=== PATIENT | female | born 1990 | race Caucasian/White ===

== ENCOUNTER 2016-12-04 23:32 | Emergency (ER) | payer OTHER ==
[~2016-12-04] VITALS: Ht 162.6 cm; Wt 93.6 kg
[~2016-12-04 23:32] MED LIST: DOXY100T20 PO
[2016-12-04 23:34] VITALS: Ht 162.6 cm; Wt 93.6 kg
--- NOTE | 2016-12-05 02:34 | ERD ---
ER Documentation Chief Complaint Date/Time DATE: 12/05/16 TIME: 02:33 Chief Complaint SOB COUGH OFF AND ON FOR 2 MO. WORSE TONIGHT HPI 26-year-old female presents here in emergency department for complaints of cough , runny nose nasal congestion sore throat on and off shortness of breath and wheezing for 2 months now. Patient smokes regularly, smokes marijuana, takes cocaine. Patient does not take any medications SYMPTOMS. Patient was told before to have bronchitis. Patient does not have any fever or chills. Patient does not have any chest or palpitations. Patient denies any dizziness. She denies any sick contacts. ROS All systems reviewed and are negative except as per history of present illness. Medications Home Meds Active Scripts Doxycycline Hyclate* (Doxycycline Hyclate*) 100 Mg Tablet.dr, 100 MG PO BID for 10 Days, TAB Prov:MATEUSZ BYRD PA-C 07/30/16 Allergies Allergies: Coded Allergies: No Known Allergy (Unverified , 12/04/16) PMhx/Soc Hx Miscellaneous Medical Probl: Yes (alcoholic since 2006) Hx Alcohol Use: Yes (a handle of vodka daily) Hx Substance Use: Yes (marijuana) Hx Tobacco Use: Yes Smoking Status: Current every day smoker FmHx Family History: No coronary disease, No diabetes, No other Physical Exam Vitals Vital Signs Date Time Temp Pulse Resp B/P Pulse Ox O2 Delivery O2 Flow Rate FiO2 12/04/16 23:34 97.9 106 26 142/101 100 Physical Exam GENERAL: The patient is well developed and appropriate for usual state of health, in no apparent distress. CHEST: Clear to auscultation bilaterally. There are no rales, wheezes or rhonchi. HEART: Regular rate and rhythm. No murmurs, clicks, rubs or gallops. No S3 or S4. ABDOMEN: Soft, nontender and nondistended. Good bowel sounds. No rebound or guarding. No gross peritonitis. No gross organomegaly or masses. No Jimenes sign or McBurney point tenderness. BACK: No midline or flank tenderness. EXTREMITIES: Equal pulses bilaterally. There is no peripheral clubbing, cyanosis or edema. No focal swelling or erythema. Full range of motion. Grossly neurovascularly intact. NEURO: Alert and oriented. Cranial nerves 2-12 intact. Motor strength in all 4 extremities with 5/5 strength. Sensation grossly intact. Normal speech and gait. SKIN: There is no apparent rash or petechia. The skin is warm and dry. HEMATOLOGIC AND LYMPHATIC: There is no evidence of excessive bruising or lymphedema. No gross cervical, axillary, or inguinal lymphadenopathy. Results 24 hrs PROCEDURE: CHEST - 1 VIEW CLINICAL INDICATION: 26-year-old female with cough for 1 month. TECHNIQUE: A single frontal PA view of the chest was performed. The images were reviewed on a PACS workstation. COMPARISON: None. FINDINGS: The cardiomediastinal silhouette has a normal appearance. There is no evidence for an infiltrate. The pulmonary vascularity is within normal limits. There is no evidence for pneumothorax or pneumomediastinum. The osseous structures are intact. IMPRESSION: No evidence for active cardiopulmonary disease. .Everardo Lott MD, MD Date Time Electronically viewed and signed by .Everardo Lott MD, MD on 12/05/2016 03:12 .M/ CC: LEILA TAVERAS PHOTOENGRAVING HELPER Procedures/MDM Medical Decision Making: Patient symptoms are most likely consistent with any chronic cough, possible viral in origin. There is low suspicion for Pneumonia at this time since patients lungs sounds are clear, patient O2 saturation is normal and patient doesnt show any respiratory distress. Patients chest xray doesnt show infiltrates or any other cardiopulmonary emergencies at this time. There is low suspicion for other cardiopulmonary emergencies at this time such as CHF, Pulmonary Embolism, Pneumothorax, Aortic Aneurysm or any other cardiopulmonary emergencies at this time. There is low suspicion for sepsis. Patient appears well and is hemodynamically stable. Does not have any fever. Disposition: Home. Condition: Stable Prescriptions: Albuterol, guaifenesin DM Zyrtec ibuprofen Instructions: Patient is advised to take medications as prescribed. Patient is advised to rest. Patient advised to increase fluid intake, do humidifier at home and if possible, do salt water gargles. Patient is advised that if symptoms are worse, shortness of breath, uncontrolled fever, stridor, vomiting, worst signs and symptoms to return to emergency department immediately. Otherwise, patient is advised to follow up with primary doctor in 5-7 days. Departure Diagnosis: Primary Impression: Chronic cough Condition: Stable Patient Instructions: Cough, Chronic, Uncertain Cause, (Adult) Additional Instructions: Patient is advised to take medications as prescribed. Patient is advised to rest. Patient advised to increase fluid intake, do humidifier at home and if possible, do salt water gargles. Patient is advised that if symptoms are worse, shortness of breath, uncontrolled fever, stridor, vomiting, worst signs and symptoms to return to emergency department immediately. Otherwise, patient is advised to follow up with primary doctor in 5-7 days. LEILA TAVERAS NP Dec 05, 2016 02:33
--- NOTE | 2016-12-05 03:12 | RADRPT ---
PROCEDURE: CHEST - 1 VIEW CLINICAL INDICATION: 26-year-old female with cough for 1 month. TECHNIQUE: A single frontal PA view of the chest was performed. The images were reviewed on a PAC S workstation. COMPARISON: None. FINDINGS: The cardiomediastinal silhouette has a normal appearance. There is no evidence for an infiltrate. T he pulmonary vascularity is within normal limits. There is no evidence for pneumothorax or pneumomed iastinum. The osseous structures are intact. IMPRESSION: No evidence for active cardiopulmonary disease. .Everardo Lott MD, MD Date Time Electronically viewed and signed by .Everardo Lott MD, on 12/05/2016 03:12 .M/
[2016-12-05] MEDS ORDERED: CETI10CA PO (03:30)
[2016-12-05] MEDS ORDERED: GUAI120S26 PO (03:30)
[2016-12-05] MEDS ORDERED: ALBU8.5H3 INH (03:30)
[2016-12-05] MEDS ORDERED: IBUP-1542 PO (03:30)
== END 2016-12-05 03:55 | disposition home or self-care (01) ==
LOC: FTE 23:32
DX: R05 Cough (principal); F17.210 Nicotine dependence, cigarettes, uncomplicated
CPT/HCPCS: 71010; Z7502

== ENCOUNTER 2017-05-20 23:48 | Emergency (ER) | payer OTHER ==
[~2017-05-20] VITALS: Ht 170.2 cm; Wt 98.0 kg
[~2017-05-20 23:48] MED LIST changes: +ALBU8.5H3 INH; +CETI10CA PO; +GUAI120S26 PO; +IBUP-1542 PO
[2017-05-20 23:54] VITALS: BP 129/75; PULSE 95; RESP 18; TEMP 98.5; Ht 170.2 cm; Wt 98.0 kg
[2017-05-21] MEDS ORDERED: ONDANSETRON (ODT) 4 MG TAB ODT STA (00:18)
[2017-05-21] MEDS ORDERED: HYDROCODONE/APAP (10/325) TAB PO ONE (00:30)
[2017-05-21] MEDS ORDERED: HYDROmorphONE 2 MG/ML SYG IM STA (01:25)
[2017-05-21] MEDS ORDERED: HYDR-902 PO (01:57)
--- NOTE | 2017-05-21 02:04 | RADRPT ---
PROCEDURE: XR Right Ankle. CLINICAL INDICATION: Injury. Pain. TECHNIQUE: Three views of the right ankle were performed. COMPARISON: None. FINDINGS: There is bilateral malleolar subcutaneous soft tissue swelling. There is a laterally displaced commi nuted fracture of the lateral malleolus. There is an inferiorly avulsed fracture of the inferior ti p of the medial malleolus. There is a fracture of the posterior malleolus of the tibia. There is la teral subluxation of the foot relative to the more proximal tibia and fibula with gross disruption o f the ankle mortise.. Bone mineralization is within normal limits. IMPRESSION: Soft tissue swelling surrounding trimalleolar fractures with lateral displacement of foot relative t o the proximal tibia and fibula with gross distortion of the ankle mortise. RPTAT: [facility] .Geovanny Castañeda MD, Date Time Electronically viewed and signed by .Geovanny Castañeda MD, on 05/21/2017 02:04 .K/
--- NOTE | 2017-05-21 03:25 | ERD ---
ER Documentation Chief Complaint Date/Time DATE: 05/21/17 TIME: 03:23 Chief Complaint bib ra from street for right ankle pain s/p fall from skateboard, pt etoh HPI Patient is a 26-year-old female with alcohol abuse who presents with ankle pain. She was brought in by ambulance. She was using a skateboard and fell and injured her right ankle. She was drinking alcohol at the time and was intoxicated. This happened just prior to arrival. She has deformity to the right ankle and a splint was placed by paramedics. ROS All systems reviewed and are negative except as per history of present illness. Medications Home Meds Active Scripts Hydrocodone/Acetaminophen (Doucette 10-325 Tablet) 1 Each Tablet, 1 TAB PO Q6H Y for PAIN, #12 TAB Prov:KOBY CHACKO MD 05/21/17 Ibuprofen* (Motrin*) 600 Mg Tab, 600 MG PO Q6H Y for PAIN AND OR ELEVATED TEMP, #30 TAB Prov:LEILA TAVERAS NP 12/05/16 Cetirizine Hcl* (Zyrtec*) 10 Mg Capsule, 10 MG PO DAILY, #30 TAB.CHEW Prov:LEILA TAVERAS NP 12/05/16 Wzhzcnuxexv-H-Onuxrjbrig Hb* (Guaifenesin* DM Syrup) 120 Ml Syrup, 10 ML PO Q4H Y for COUGH, #120 ML Prov:LEILA TAVERAS NP 12/05/16 Albuterol Sulfate* (Proair HFA*) 8.5 Gm Hfa.aer.ad, 2 PUFF INH Q4H Y for WHEEZING AND SOB, #1 INHALER Prov:LEILA TAVERAS NP 12/05/16 Doxycycline Hyclate* (Doxycycline Hyclate*) 100 Mg Tablet., 100 MG PO BID for 10 Days, TAB Prov:MATEUSZ BYRD PA-C 07/30/16 Allergies Allergies: Coded Allergies: No Known Allergy (Unverified , 12/04/16) PMhx/Soc Medical and Surgical Hx: pt denies Medical Hx, pt denies Surgical Hx Hx Miscellaneous Medical Probl: Yes (alcoholic since 2006) Hx Alcohol Use: Yes (a handle of vodka daily) Hx Substance Use: Yes (marijuana) Hx Tobacco Use: Yes Smoking Status: Never smoker FmHx Family History: No diabetes Physical Exam Vitals Vital Signs Date Time Temp Pulse Resp B/P Pulse Ox O2 Delivery O2 Flow Rate FiO2 05/20/17 23:54 98.5 95 18 129/75 99 Room Air 05/20/17 23:54 98.5 78 18 134/81 99 Physical Exam Const: Moderate distress secondary to pain Head: Atraumatic Eyes: Normal Conjunctiva ENT: Normal External Ears, Nose and Mouth. Neck: Full range of motion..~ No meningismus. Resp: Clear to auscultation bilaterally Cardio: Regular rate and rhythm, no murmurs Abd: Soft, non tender, non distended. Normal bowel sounds Skin: No petechiae or rashes Back: No midline or flank tenderness Ext: Right ankle pain with swelling and tenderness to palpation Neur: Awake and alert Psych: Normal Mood and Affect Results 24 hrs Current Medications Medications (Trade) Dose Ordered Sig/Shaun Route PRN Reason Start Time Stop Time Status Last Admin Dose Admin Acetaminophen/ Hydrocodone Bitart (Doucette (10/325)) 1 tab ONCE ONCE PO 05/21/17 00:30 05/21/17 00:31 DC 05/21/17 00:29 Ondansetron HCl (Zofran Odt) 4 mg ONCE STAT ODT 05/21/17 00:18 05/21/17 00:20 DC 05/21/17 00:30 Hydromorphone HCl (Dilaudid) 2 mg ONCE STAT IM 05/21/17 01:25 05/21/17 01:26 DC 05/21/17 01:42 Procedures/MDM X-ray Ankle 3V Interpreted by me: Bones: Distal tibia and fibula fracture with displacement Joints: Displacement of the mortise Splint Note Type: Posterior and sugar tong Location: Right lower extremity Indication: Distal fibula and tibia fracture Splint Assessment: Neurovascularly intact post splint placement with good fit. Smoking Cessation Therapy: Pt. was lectured for greater than 3 minutes on the health risks of continued smoking and the benefits of cessation. Patient is a 26-year-old female who presents with a right ankle fracture. She was placed in a posterior and sugar tong splint for fixation. She will need surgery for definitive care. However she does not need admission the hospital or surgery tonight as this is a closed fracture. She can follow-up with Dr. James from orthopedic surgery and can return for any worsening symptoms. She will be given Doucette prescription for pain. She should follow-up with Dr. James within 3 days. Departure Diagnosis: Primary Impression: Ankle fracture Encounter type: initial encounter Fracture type: closed Laterality: right Qualified Code: S82.891A - Closed fracture of right ankle, initial encounter Condition: Fair Patient Instructions: Treating Ankle Fractures Referrals: ADE JAMES MD Additional Instructions: SPECIALIST: YOU HAVE A MEDICAL CONDITION WHICH REQUIRES YOU TO SEE A SPECIALIST WITHIN THE NEXT 1-2 DAYS. PLEASE FOLLOW UP WITH YOUR PRIMARY PHYSICIAN FOR REFFERAL.IF YOU DO NOT HAVE A PRIMARY CARE PHYSICIAN AND/OR YOU CAN NOT AFFORD TO SEE A PHYSICIAN THE FOLLOWING RESOURCES HAVE BEEN SUPPLIED TO YOU. IT IS YOUR RESPONSIBILITY TO BE SEEN BY THE SPECIALIST KOBY CHACKO MD May 21, 2017 03:25
== END 2017-05-21 03:05 | disposition home or self-care (01) ==
LOC: E/R 23:48
DX: S82.851A Displaced trimalleolar fracture of right lower leg, initial encounter for closed fracture (principal); V00.131A Fall from skateboard, initial encounter; Y92.410 Unspecified street and highway as the place of occurrence of the external cause; Z87.891 Personal history of nicotine dependence
CPT/HCPCS: 29515; 73610; 96372; J1170; Z7502; Z7610